=== PATIENT | female | born 1990 | race Two or more races ===

== ENCOUNTER → 2019-01-20 | Emergency (ER) | payer BC ==
[~2019-01-20] VITALS: Ht 152.4 cm; Wt 63.5 kg
== END | disposition designated cancer center or children's hospital (05) ==
LOC: ER 02:51
DX: S42.222A 2-part displaced fracture of surgical neck of left humerus, initial encounter for closed fracture (principal); W10.8XXA Fall (on) (from) other stairs and steps, initial encounter; Y93.89 Activity, other specified; Y92.59 Other trade areas as the place of occurrence of the external cause; Y99.8 Other external cause status